=== PATIENT | male | born 1945 ===

== ENCOUNTER 2018-11-02 06:00 | Day surgery (SDC) | payer OTHER ==
[~2018-11-02 06:00] MED LIST: CYMBALTA30 MG PO; GABAPENTIN600 MG PO; PNEU16DI2
== END 2018-11-02 12:25 | disposition home or self-care (01) ==
LOC: CIR.AMB 06:00
DX: M99.43 Connective tissue stenosis of neural canal of lumbar region (principal); M99.73 Connective tissue and disc stenosis of intervertebral foramina of lumbar region; M48.07 Spinal stenosis, lumbosacral region